=== PATIENT | female | born 1985 | race Two or more races ===

== ENCOUNTER → 2017-10-02 | Outpatient (CLI) | payer OTHER ==
[2017-10-02 09:44] LABS: HCT (SEDRATE) 38.9 % (34.6-47.8)
[2017-10-02 10:03] LABS: CHOL/HDL RATIO 2.4; LDL/HDL RATIO 0.9 (0.5-3.0); THYROID STIMULATING HORMONE 2.17 mIU/L (0.358-3.740)
[2017-10-02 10:12] LABS: HEMOGLOBIN A1C 5.4 % (4.2-6.3)
== END | disposition home or self-care (01) ==
LOC: LAB 09:14
PROVIDERS: ATTEND Nurse Practitioner Family
DX: Z13.220 Encounter for screening for lipoid disorders (principal); R73.01 Impaired fasting glucose; R53.83 Other fatigue; Z82.69 Family history of other diseases of the musculoskeletal system and connective tissue
CPT/HCPCS: 36415; 80061; 82306; 83036; 83516; 84443; 85651; 86038; 86147; 86160; 86162; 86200; 86225; 86235; 86255; 86256; 86376; 86430; 86431